=== PATIENT | female | born 1950 | race Caucasian/White ===

== ENCOUNTER → 2020-10-31 | Outpatient (CLI) | payer MEDICARE ==
--- NOTE | 2020-10-31 12:00 | ECHOF ---
Referral Reason:R01.1 Murmur MEASUREMENTS -------- HEIGHT: 168.9 cm WEIGHT: 61.7 kg BP: 167/72 RVIDd: 2.9 cm (< 3.3) IVSd: 1.0 cm (0.6 - 1.1) LVIDd: 3.9 cm (3.9 - 5.3) LVPWd: 1.1 cm (0.6 - 1.1) IVSs: 1.7 cm LVIDs: 2.5 cm LVPWs: 1.8 cm LA Diam: 3.3 cm (2.7 - 3.8) LAESV Index (A-L): 28.43 ml/m Ao Diam: 3.3 cm (2.0 - 3.7) AV Cusp: 2.0 cm (1.5 - 2.6) MV EXCURSION: 13.818 mm (> 18.000) MV EF SLOPE: 74 mm/s (70 - 150) EPSS: 0.1 cm MV E Gil: 0.69 m/s MV DecT: 275 ms MV A Gil: 0.86 m/s MV E/A Ratio: 0.81 FINDINGS -------- Sinus rhythm. This was a technically good study. The left ventricular size is normal. Left ventricular wall thickness is normal. Overall left vent ricular systolic function is normal with, an EF between 60 - 65 %. The right ventricle is normal in size. Normal LA size by volume 22+/-6 ml/m2. The right atrium is normal in size. Interatrial and interventricular septum intact. The aortic valve is trileaflet, and appears structurally normal. No aortic stenosis or regurgitation. There is trace to mild mitral regurgitation. The tricuspid valve appears structurally normal. Unable to estimate RVSP due to inadequate TR jet s pectral doppler profile. There is no pulmonic regurgitation present. The aortic root size is normal. Normal inferior vena cava with normal inspiratory collapse consistent with estimated right atrial pre ssure of 5 mmHg. There is no pericardial effusion. CONCLUSIONS -------- 1. The left ventricular size is normal. 2. Left ventricular wall thickness is normal. 3. Overall left ventricular systolic function is normal with, an EF between 60 - 65 %. 4. The aortic valve is trileaflet, and appears structurally normal. No aortic stenosis or regurgitati on. 5. There is trace to mild mitral regurgitation. 6. There is no pericardial effusion. COMPUTER ANALYST: Lucy Godinez RDCS
== END | disposition home or self-care (01) ==
LOC: RADECHMAIN 08:10
PROVIDERS: ATTEND Family Medicine
DX: R01.1 Cardiac murmur, unspecified (principal)
CPT/HCPCS: 93306

== ENCOUNTER → 2024-10-02 | Outpatient (CLI) | payer MEDICARE ==
--- NOTE | 2024-10-03 13:40 | MR ---
MR shoulder LT wo con DATE OF EXAM: 10/02/2024 2:37 PM COMPARISON: Same day right shoulder MR. CLINICAL INDICATION: Female, 74 years old with history of M75.100 S46.012A ROTATOR CUFF TEAR/STRAIN O F [facility]; [facility], Lt shoulder pain TECHNIQUE: Noncontrast multiplanar, multiecho imaging of the left shoulder was performed, including T 1-weighted and fluid sensitive sequences. FINDINGS: Rotator cuff: Supraspinatus and infraspinatus: High-grade partial-thickness articular surface tear of the posterior supraspinatus with additional involvement of the anterior/superior infraspinatus fibers. Retraction of the articular surface fibers to the level of the humeral head apex. A few anterior supraspinatus f ibers appear intact with marked tendinosis. Extension of tear to involve the articular surface of the infraspinatus with marked tendinosis. Subscapularis: Low grade articular surface tearing of the superior fibers. Background tendinosis. Teres minor: Intact. Cuff muscles: Moderate atrophy of the supraspinatus. Otherwise preserved. Acromioclavicular joint: Moderate arthrosis and capsular hypertrophy with joint effusion and clavicul ar predominant subchondral cysts. SA-SD bursa: Small volume bursal fluid. Long head biceps tendon: Intact, with normal course. Intra-articular biceps tendinosis. Rotator Interval: Edematous with complete effacement of the fat. Axillary pouch: Preserved. Labrum: Diminutive and blunted appearance of the posterior labrum. Cartilage: Marked thinning and surface irregularity with near full-thickness fissures of the posterio r glenoid cartilage. Marrow: Subcortical cystic change of the lesser tuberosity and posterolateral coracohumeral head. No fracture or marrow replacing process. Other soft tissues: Pronounced edema with effacement of the fat planes at the coracoclavicular interv al, concerning for age-indeterminate ligamentous tear. No joint effusion. No axillary adenopathy. Axi llary surgical changes. IMPRESSION: 1. High-grade partial-thickness articular surface tear of supraspinatus with retraction of articular tendon fibers. Tear also involves articular surface of infraspinatus. 2. Biceps tendinosis. 3. [id number] coracohumeral degenerative change/chondrosis. 4. Nonspecific findings raise concern for age-indeterminate coracoclavicular ligament injury. [facility], , 10/03/2024 1:38 PM
--- NOTE | 2024-10-03 13:40 | MR ---
MR shoulder RT wo con DATE OF EXAM: 10/02/2024 2:31 PM COMPARISON: Same day left shoulder MR. CLINICAL INDICATION: Female, 74 years old with history of M75.100 S46.012A ROTATOR CUFF TEAR/STRAIN O F [facility]; [facility], Rt shoulder pain TECHNIQUE: Noncontrast multiplanar, multiecho imaging of the right shoulder was performed, including T1-weighted and fluid sensitive sequences. FINDINGS: Rotator cuff: Supraspinatus and infraspinatus: High-grade near full-thickness near fullwidth articular surface tear of the supraspinatus with retraction of the articular tendinous fibers the level of the superior hum eral head apex. The bursal most tendon does appear intact anteriorly. Additionally high-grade near fu ll thickness articular surface tear of the infraspinatus with proximal extension of the delaminating component 20 myotendinous junction. A few bursal surface fibers appear intact. Subscapularis: A low-grade partial thickness articular surface tear of the superior fibers. Teres minor: Intact. Cuff muscles: No atrophy. Mild edema throughout the subscapularis the level of the myotendinous junct ion. No significant edema of the proximal rotator cuff muscles. Acromioclavicular joint: Moderate arthrosis with clavicular predominant subchondral cysts. Small join t effusion. Minimal capsular hypertrophy. SA-SD bursa: No bursal fluid. Long head biceps tendon: Intra-articular tendinosis. Rotator Interval: Edematous with complete effacement of the fat. Axillary pouch: Slightly distended by joint fluid. Diminutive appearance of the humeral attachments. Moderate adjacent edema. Labrum: Diminutive and blunted of the posterior superior labrum Cartilage: Subchondral cysts of the anterior superior glenoid are favored secondary to MRI-occult ful l-thickness cartilage defect. Marrow: Focal edema-like marrow signal at the infraspinatus insertion. Reactive rotator cuff tear. Leo bcortical cystic change of the lesser tuberosity and posterolateral corner. No fracture or marrow rep lacing process. Other soft tissues: Trace joint effusion. No axillary adenopathy. IMPRESSION: 1. High-grade partial-thickness tears of the articular surface of supraspinatus and infraspinatus. 2. Low-grade partial thickness articular surface subscapularis tear. 3. Biceps tendinosis and tears as. 4. Nonspecific findings which could be seen in adhesive capsulitis in the appropriate clinical settakshat meza. [facility], , 10/03/2024 1:38 PM
== END | disposition home or self-care (01) ==
LOC: RADMRIMAIN 13:29
PROVIDERS: ATTEND Orthopaedic Surgery
DX: S46.012A Strain of muscle(s) and tendon(s) of the rotator cuff of left shoulder, initial encounter (principal); S46.011A Strain of muscle(s) and tendon(s) of the rotator cuff of right shoulder, initial encounter; M19.011 Primary osteoarthritis, right shoulder; M19.012 Primary osteoarthritis, left shoulder; M75.22 Bicipital tendinitis, left shoulder; M75.21 Bicipital tendinitis, right shoulder